=== PATIENT | male | born 1945 | race Caucasian/White ===

== ENCOUNTER 2025-06-10 06:34 | Observation (INO) | payer MEDICARE ==
[~2025-06-10] VITALS: Ht 170.2 cm; Wt 82.6 kg
[2025-06-10] VITALS (7 sets, daily range): BP systolic 116–127; BP diastolic 78–88; PULSE 56–77; RESP 18; TEMP 97.8–98.3; O2SAT 97–100
[~2025-06-10 06:34] MED LIST: DULOXETINE HCL20 MG PO; FLOMAX0.4 MG PO; FOLIC ACID0.8 MG PO; OXYBUTYNIN CHLOR5 MG PO; XARELTO20 MG PO
[2025-06-10] MEDS ORDERED: ROPIVACAINE 246.25 MG, EPINEPHRINE HCL 1:1000 1ML 0.5 MG, CLONIDINE HCL 0.08 MG, KETORO... INJ ONE (07:00)
[2025-06-10] MEDS: GABAPENTIN 300 MG CAP ONE (07:40)
[2025-06-10] MEDS: CELECOXIB 200 MG CAP ONE (07:40)
[2025-06-10] MEDS: CEFAZOLIN SODIUM 2 GM ONE (07:40)
[2025-06-10] MEDS: LACTATED RINGER'S 1,000 ML ONE (07:41)
[2025-06-10] MEDS: DEXAMETHASONE SOD PHOS 10 MG/1 ML VIAL ONE (07:41)
[2025-06-10] MEDS ORDERED: SEVOFLURANE INHAL SOLN 250 ML PEN BTL ONE (08:55)
[2025-06-10] MEDS ORDERED: PROPOFOL IV EMULSION 10 MG/ML 20 ML VIAL ONE (08:55)
[2025-06-10] MEDS ORDERED: LIDOCAINE HCL 2% LOCAL INJ 5 ML SDV VIAL INJ ONE (08:55)
[2025-06-10] MEDS ORDERED: FENTANYL CITRATE/PF 100MCG/2 ML INJ ONE ×2 (08:55→10:23)
[2025-06-10] MEDS ORDERED: ROCURONIUM BROMIDE 1 ML IV ONE (08:56)
[2025-06-10] MEDS ORDERED: ONDANSETRON HCL INJ 2MG/ML 2ML 2 MG/ML VIAL ONE (09:51)
[2025-06-10] MEDS ORDERED: ACETAMINOPHEN 1000 MG/100 ML 100 ML IV ONE (09:51)
[2025-06-10] MEDS ORDERED: FAMOTIDINE 20 MG/2 ML VIAL IV ONE (09:51)
[2025-06-10] MEDS ORDERED: PHENYLEPHRINE HCL 1% 10 MG/ML VIAL ONE (10:52)
[2025-06-10] MEDS ORDERED: SODIUM CHLORIDE 0.9% 100 ML ONE (10:53)
[2025-06-10] MEDS ORDERED: SUGAMMADEX SODIUM 200 MG/2 ML VIAL IV ONE (10:59)
[2025-06-10] MEDS ORDERED: HYDROCODONE/APAP 7.5MG-325MG 1 EA TAB PO PRN (11:15)
[2025-06-10] MEDS ORDERED: DIPHENHYDRAMINE HCL INJ 50 MG/ML VIAL IV PRN (11:15)
[2025-06-10] MEDS ORDERED: ACETAMINOPHEN 650 MG SUPP PR PRN (11:15)
[2025-06-10] MEDS ORDERED: DOCUSATE SODIUM 100 MG CAP PO PRN ×2 (11:15→15:30)
[2025-06-10] MEDS ORDERED: ONDANSETRON HCL INJ 2MG/ML 2ML 2 MG/ML VIAL IV PRN (11:15)
[2025-06-10] MEDS ORDERED: HYDROCODONE/APAP 5MG-325MG TAB PO PRN (11:15)
[2025-06-10] MEDS ORDERED: HYDROMORPHONE 1MG/1ML INJ ONE (11:35)
[2025-06-10] MEDS ORDERED: POTASSIUM CHLORIDE 20 MEQ TAB CR PO PRN (15:30)
[2025-06-10] MEDS ORDERED: DIPHENHYDRAMINE HCL 25 MG CAP PO PRN (15:30)
[2025-06-10] MEDS ORDERED: BENZONATATE 100 MG CAP PO PRN (15:30)
[2025-06-10] MEDS ORDERED: HYDRALAZINE HCL 20 MG/ML VIAL IV PRN (15:30)
[2025-06-10] MEDS ORDERED: SIMETHICONE 80 MG CHEW PO PRN (15:30)
[2025-06-10] MEDS ORDERED: LIDOCAINE 4% PATCH TP PRN (15:30)
[2025-06-10] MEDS ORDERED: ALBUTEROL/IPRATROPIUM 3 ML NEB NEB PRN (15:30)
[2025-06-10] MEDS ORDERED: ACETAMINOPHEN 325 MG TAB PO PRN (15:30)
[2025-06-10] MEDS ORDERED: DEXTROSE 50% SYRINGE 50 ML IV PRN (15:30)
[2025-06-10 16:00] LABS: BASOPHILS % 0.0 % (0.0-1.0); EOSINOPHILS % 0.0 % (0.0-6.0); LYMPHOCYTES % 6.1 % (18.0-39.1); MONOCYTES % 1.6 % (4.4-11.3); NEUTROPHILS % 92.0 % (38.7-80.0); RED CELL DISTRIBUTION WIDTH 15.9 % (11.7-14.4)
[2025-06-10 16:21] LABS: EST GLOMERULAR FILTRATION RATE 33.0 ML/MIN (>=60)
[2025-06-10] MEDS: FUROSEMIDE INJ 10 MG/ML 4 ML VIAL IV ONE (18:23)
[2025-06-10] MEDS: SODIUM CHLORIDE 0.9% 1000ML 1,000 ML IV SCH (18:23)
[2025-06-10] MEDS: SOD POLYSTYRENE SULFONATE SUSP 15 GM/60 ML BTL PO ONE (18:23)
[2025-06-10] MEDS: RIVAROXABAN 20 MG TABLET PO SCH (18:24)
[2025-06-10] MEDS: CELECOXIB 100 MG CAP PO SCH (18:29)
[2025-06-10] MEDS: ASPIRIN 325 MG TAB PO SCH (18:29)
[2025-06-10] MEDS ORDERED: MELATONIN 5 MG TABLET PO PRN (21:00)
[2025-06-11 03:05] VITALS: BP 128/80; PULSE 72; RESP 18; TEMP 97.8; O2SAT 94
[2025-06-11 06:30] LABS: BASOPHILS % 0.2 % (0.0-1.0); EOSINOPHILS % 0.0 % (0.0-6.0); LYMPHOCYTES % 13.7 % (18.0-39.1); MONOCYTES % 8.1 % (4.4-11.3); NEUTROPHILS % 77.8 % (38.7-80.0); RED CELL DISTRIBUTION WIDTH 15.8 % (11.7-14.4)
[2025-06-11 06:40] VITALS: PULSE 63; RESP 22; O2SAT 98
[2025-06-11 06:50] LABS: EST GLOMERULAR FILTRATION RATE 28.0 ML/MIN (>=60)
[2025-06-11 08:00] VITALS: BP 116/76; PULSE 63; RESP 20; TEMP 97.5; O2SAT 98
[2025-06-11] MEDS: DULOXETINE HCL 20 MG DELAYED RELEASE PO SCH (10:01)
[2025-06-11] MEDS: FOLIC ACID 1 MG TAB PO SCH (10:01)
[2025-06-11] MEDS: TAMSULOSIN HCL 0.4 MG CAP PO SCH (10:01)
[2025-06-11] MEDS: OXYBUTYNIN CHLORIDE 5 MG TAB PO SCH (10:02)
[2025-06-11] MEDS: PANTOPRAZOLE SOD 40 MG TABEC PO SCH (10:07)
[2025-06-11] MEDS ORDERED: ACETAMINOPHEN 1000 MG/100 ML IV PRN (11:15)
[2025-06-11 12:00] VITALS: BP 128/77; PULSE 67; RESP 17; TEMP 97.9; O2SAT 100
== END 2025-06-11 13:48 | disposition home or self-care (01) ==
LOC: OR 06:34 → PACU V 11:05 → MED/SURG2 13:45
PROVIDERS: ADMIT Specialist; ATTEND Specialist
DX: M16.11 Unilateral primary osteoarthritis, right hip (principal); D64.9 Anemia, unspecified; I12.9 Hypertensive chronic kidney disease with stage 1 through stage 4 chronic kidney disease, or unspecified chronic kidney disease; N18.9 Chronic kidney disease, unspecified; I48.91 Unspecified atrial fibrillation; Z79.01 Long term (current) use of anticoagulants; Z85.05 Personal history of malignant neoplasm of liver; Z01.810 Encounter for preprocedural cardiovascular examination; Z01.818 Encounter for other preprocedural examination; Z01.812 Encounter for preprocedural laboratory examination
CPT/HCPCS: 27130; 36415 ×2; 71046; 72170; 80048 ×2; 85025 ×2; 86850; 86900; 93005; 94799 ×2; 97116 ×2; 97161; 97530; C1713 ×3; G0378 ×2; J0131; J0169; J0690 ×2; J1100; J1171; J1308; J1885; J1938; J2003; J2371; J2405; J2470; J2704; J2795; J3010; J7030 ×2; J7050; J7121